=== PATIENT | female | born 1960 | race Caucasian/White ===

== ENCOUNTER 2019-09-25 06:46 | Day surgery (SDC) | payer OTHER ==
[~2019-09-25 06:46] MED LIST: Buffered Lidocaine 1% SYRIN* 1 ML/SYRINGE INTRADERM ONE; Dexamethasone IV* 4 MG/ML 1 ML (4 MG) IV SLOW PU ONE; Famotidine IV* 10 MG/ML 2 ML (20 mg) IV ONE; Lactated Ringers 1000 ML Bag* 1,000 ML IV SCH
[2019-09-25] MEDS ORDERED: Famotidine IV* 10 MG/ML 2 ML (20 mg) ONE (08:28)
[2019-09-25] MEDS ORDERED: Dexamethasone IV* 4 MG/ML 1 ML (4 MG) ONE (08:28)
[2019-09-25] MEDS ORDERED: Naloxone* 0.4 MG/ML 1 ML VIAL IV PRN (08:41)
[2019-09-25] MEDS ORDERED: DiMENhydriNATE IV* 50 MG/ML VIAL IV PUSH PRN (08:41)
[2019-09-25] MEDS ORDERED: Scopolamine 1.5 mg* PATCH TRANSDERM PRN (08:41)
[2019-09-25] MEDS ORDERED: oxyCODONE/Acetamin 5/325 MG* TAB PO PRN (08:41)
[2019-09-25] MEDS ORDERED: Ondansetron INJ* 2 MG/ML VIAL IV PRN (08:41)
[2019-09-25] MEDS ORDERED: fentaNYL* 50 MCG/ML 2 ML VIAL (100 MCG VIAL) IV PRN (08:41)
[2019-09-25] MEDS ORDERED: Ondansetron INJ* 2 MG/ML VIAL ONE (08:58)
[2019-09-25] MEDS ORDERED: fentaNYL* 50 MCG/ML 5 ML VIAL (250 MCG VIAL) ONE (08:58)
[2019-09-25] MEDS ORDERED: Midazolam* 1 MG/ML 5 ML VIAL (5 MG) ONE (08:58)
[2019-09-25] MEDS ORDERED: Propofol* 10 MG/ML 20 ML BTL ONE (08:58)
[2019-09-25] MEDS ORDERED: Lidocaine 2% PF * 5 ML VIAL ONE (08:58)
[2019-09-25] MEDS ORDERED: Ketorolac INJ* 30 MG/ML 1 ML VIAL ONE (08:58)
[2019-09-25 11:52] VITALS: BP 138/78
--- NOTE | 2019-09-25 16:00 | OP ---
CC: [facility] OPERATIVE REPORT: DATE OF OPERATION: 09/25/19 DATE OF : 60 SURGEON: Jeremy Goins MD ANESTHESIOLOGIST: Dr. Kumar. ANESTHESIA: General endotracheal anesthesia. PRE-OP DIAGNOSIS: Postmenopausal bleeding. POST-OP DIAGNOSIS: Postmenopausal bleeding. OPERATIVE PROCEDURE: Dilation, hysteroscopy, MyoSure polypectomy, curettage. ESTIMATED BLOOD LOSS: Minimal, less than 20 cc. FINDINGS: Midline uterus. Uterus sounded to 9. Both tubal ostia were visualized. There was a small polyp adjacent to the left tubal ostia. There was thickened appearing endometrium on the anterior u terine wall towards the fundus. COMPLICATIONS: None. COUNTS: Sponge count correct x2. CONDITION: The patient tolerated the procedure well and was brought to recovery room awake and in st able condition. DESCRIPTION OF PROCEDURE: The patient was brought to the operating room. When general anesthesia wa s found to be adequate, the patient was prepped and draped in the usual sterile fashion in the dorsal lithotomy position. Time-out was performed. Exam under anesthesia was performed. The bivalve spec ulum was placed in the vagina. The anterior lip of the cervix was grasped with single-tooth tenaculu m and the cervix was gently dilated using the graduated Hegar dilators. The smaller MyoSure scope was placed with the above findings noted. The polyp was removed with MyoSure light. Endometrial curett age was performed. The single-tooth tenaculum was removed from the anterior lip of the cervix. Exce llent hemostasis was noted. All instruments were removed from the vagina. The patient tolerated the procedure well and was brought to recovery room awake and in stable condition. [id number]/[facility] #: [id number]
== END 2019-09-25 12:18 | disposition home or self-care (01) ==
LOC: OR 06:46
PROVIDERS: ATTEND Obstetrics & Gynecology
DX: N95.0 Postmenopausal bleeding (principal); N84.0 Polyp of corpus uteri; E11.9 Type 2 diabetes mellitus without complications; I10 Essential (primary) hypertension; E03.9 Hypothyroidism, unspecified
CPT/HCPCS: 88305; J1100; J1885; J2250; J2405; J2704; J3010

== ENCOUNTER 2021-04-18 14:25 | Observation (INO) ==
[2021-04-18] MEDS ORDERED: Lactated Ringers 1000 ml BAG 1,000 ML IV ONE (15:00)
[2021-04-18] MEDS ORDERED: Ondansetron 4 mg VIAL 2 MG/ML 2 ml VIAL IV PRN (15:01)
[2021-04-18 15:43] LABS: ABS Basophils 0.1 10^3/ul (0-0.2); ABS Eosinophils 0.1 10^3/ul (0-0.6); ABS Lymphocytes 1.4 10^3/ul (1.0-4.8); ABS Monocytes 0.4 10^3/ul (0-0.8); ABS Neutrophils 7.1 10^3/ul (1.5-7.7); Eosinophil % 1.2 %; Hematocrit 40 % (35-47); Hemoglobin 13.8 g/dL (12.0-16.0); Mean Corpuscular HGB Conc 34 g/dL (31-36); Mean Corpuscular Hemoglobin 30 pg (27-31); Mean Corpuscular Volume 87 fL (80-97); Mean Platelet Volume 8.6 fL (7.4-10.4); Platelet Count 222 10^3/uL (150-450); Red Blood Count 4.66 10^6 /uL (3.70-4.87); Red Cell Distribution Width 15 % (10-15)
[2021-04-18 16:20] LABS: ALT 58 U/L (7-52); Albumin/Globulin Ratio 1.2 (1-3); Alkaline Phosphatase 56 U/L (35-149); Blood Urea Nitrogen 14 mg/dL (6-24); CO2 Carbon Dioxide 28 mmol/L (22-32); Calcium 9.5 mg/dL (8.6-10.3); Chloride 102 mmol/L (101-111); EGFR African American 93.9 (>60); EGFR Non-African American 77.6 (>60); Globulin 3.3 g/dL (2-4); Glucose 135 mg/dL (70-100); Lipase 26 U/L (11.0-82.0); Sodium 137 mmol/L (135-145); Total Protein 7.3 g/dL (6.4-8.9)
[2021-04-18 16:33] LABS: Anion Gap 7 mmol/L (2-11)
[2021-04-18] MEDS ORDERED: oxyCODONE/Acetamin 5/325 mg TAB PO ONE (17:09)
[2021-04-18] MEDS ORDERED: Morphine 2 MG/ML SYRINGE IV PRN (17:59)
[2021-04-18] MEDS: Ondansetron 4 mg VIAL 2 MG/ML 2 ml VIAL IV PRN (21:19)
[2021-04-18 23:42] LABS: Potassium Redraw 3.7 mmol/L (3.5-5.0)
[2021-04-18] MEDS ORDERED: Lactated Ringers 1000 ml BAG 1,000 ML IV SCH (23:59)
[2021-04-19] MEDS: Ondansetron 4 mg VIAL 2 MG/ML 2 ml VIAL IV PRN ×2 (04:46→09:05)
[2021-04-19] MEDS ORDERED: NS 0.9% IVPB ONE (10:36)
[2021-04-19] MEDS ORDERED: CEFAZOLIN IVPB ONE (10:36)
[2021-04-19] MEDS ORDERED: ADVAN IVPB ONE (10:36)
[2021-04-19] MEDS ORDERED: Ondansetron 4 mg VIAL 2 MG/ML 2 ml VIAL ONE (10:40)
[2021-04-19] MEDS ORDERED: Rocuronium 50 mg VIAL 10 mg/ml 5 ml VIAL (50 mg) ONE ×4 (10:40→12:22)
[2021-04-19] MEDS ORDERED: Propofol 10 MG/ML 20 ML BTL ONE ×2 (10:40→10:58)
[2021-04-19] MEDS ORDERED: Midazolam 2 mg/2 ml VIAL 1 mg/ml 2 ml VIAL (2 mg) ONE (10:40)
[2021-04-19] MEDS ORDERED: Lidocaine 2% PF 5 ML VIAL ONE ×2 (10:40→10:58)
[2021-04-19] MEDS ORDERED: fentaNYL 100 mcg/2 ml 50 MCG/ML VIAL ONE (10:40)
[2021-04-19] MEDS ORDERED: Dexamethasone IV 4 MG/ML VIAL 1 ml VIAL ONE (10:40)
[2021-04-19] MEDS ORDERED: X ONE IVPB (11:00)
[2021-04-19] MEDS ORDERED: CEFAZOLIN 3 GM IVPB (11:00)
[2021-04-19] MEDS ORDERED: ceFAZolin 2 GM PREMIX 2 GM/50 ML BAG ONE (11:07)
[2021-04-19] MEDS ORDERED: ceFAZolin 1 GM ADVAN 1 GM ADDV.VIAL IVPB ONE (11:07)
[2021-04-19] MEDS ORDERED: Bupivacaine 0.25% SDV 30 ML ONE (11:08)
[2021-04-19] MEDS ORDERED: DiMENhydriNATE IV 50 mg/ml 1 ml VIAL IV PUSH PRN (12:21)
[2021-04-19] MEDS ORDERED: Naloxone 0.4 mg VIAL 0.4 mg/ml 1 ml VIAL IV PRN (12:21)
[2021-04-19] MEDS ORDERED: HYDROmorphone 1 MG/1 ML SYRINGE IV PRN (12:21)
[2021-04-19] MEDS ORDERED: Ondansetron 4 mg VIAL 2 MG/ML 2 ml VIAL IV PRN (12:21)
[2021-04-19] MEDS ORDERED: fentaNYL 100 mcg/2 ml 50 MCG/ML VIAL IV PRN (12:21)
[2021-04-19] MEDS ORDERED: Acetaminophen IV 1 GM/100ML 100 ML ONE (12:22)
[2021-04-19] MEDS ORDERED: Sugammadex 500 MG/5 ML 5 ml VIAL IV PUSH ONE (13:00)
[2021-04-19 16:21] VITALS: BP 162/79
== END 2021-04-19 16:46 | disposition home or self-care (01) ==
LOC: SSU 14:25 → ED 14:25 → SSU 19:48
PROVIDERS: ADMIT Surgery Surgical Critical Care; ATTEND Surgery Surgical Critical Care